=== PATIENT | male | born 1980 | race Caucasian/White ===

== ENCOUNTER → 2022-03-19 | Outpatient (CLI) | payer BC ==
--- NOTE | 2022-03-20 07:51 | RAD ---
PA and lateral chest radiographs 03/19/2022 CLINICAL HISTORY: Chest pain. Shortness of breath. PA and lateral digital radiographs of chest were obtained. No previous studies are available for clarisse knox. The cardiac and mediastinal silhouettes are within normal limits in size and configuration. N o pulmonary infiltrate is seen. No pleural effusion or pneumothorax is noted. Degenerative changes ar e seen involving the thoracic spine. IMPRESSION: No acute abnormality is seen. Electronically signed by: Ari Scherer MD (03/20/2022 7:48 AM) [id number]
== END ==
LOC: DXRAD 13:22
PROVIDERS: ATTEND Nurse Practitioner Family
DX: M47.814 Spondylosis without myelopathy or radiculopathy, thoracic region (principal); J22 Unspecified acute lower respiratory infection; R05.9 Cough, unspecified; R06.02 Shortness of breath
CPT/HCPCS: 71046